=== PATIENT | male | born 1955 | race Caucasian/White ===

== ENCOUNTER 2017-03-06 22:00 | Observation (INO) | payer OTHER ==
--- NOTE | 2017-03-06 22:06 | EDPHY ---
H & P HPI/ROS: HPI CHIEF COMPLAINT: Chest pain HISTORY OF PRESENT ILLNESS: Patient is 61-year-old male, history of coronary artery disease, diabetes, hypertension, hyperlipidemia he presents emergency room after he rode his bicycle here with chest pain. Patient reports that over the last 48 hr he has noticed exertional chest discomfort he describes a dull ache left side of his chest goes down his left arm and up his left neck. He reports worse with exertion. Specifically it is worse when he rides his bicycle. He states when he stops riding his bicycle chest discomfort goes away. Currently has 4/10 left-sided chest discomfort. Denies nausea vomiting or diaphoresis. Past Medical History: Coronary artery disease with stents, diabetes, hypertension, hyperlipidemia, GERD, osteoarthritis, chronic pain, alcohol use Past Surgical History: Coronary disease with stents Social History: Retired [employer]. Family History: Noncontributory ROS REVIEW OF SYSTEMS: A comprehensive 10 point review of systems is otherwise negative aside from elements mentioned in the history of present illness. Exam Constitutional triage nursing summary reviewed, vital signs reviewed, awake/ alert. Eyes normal conjunctivae and sclera, EOMI, PERRLA. HENT normal inspection, atraumatic, moist mucus membranes, no epistaxis, neck supple/ no meningismus, no raccoon eyes. Respiratory clear to auscultation bilaterally, normal breath sounds, no respiratory distress, no wheezing. Cardiovascular rate normal, regular rhythm, no murmur, no edema, distal pulses normal. Gastrointestinal soft, non-tender, no rebound, no guarding, normal bowel sounds, no distension, no pulsatile mass. Genitourinary no CVA tenderness. Musculoskeletal no midline vertebral tenderness, full range of motion, no calf swelling, no tenderness of extremities, no meningismus, good pulses, neurovascularly intact. Skin pink, warm, & dry, no rash, skin atraumatic. Neurologic awake, alert and oriented x 3, AAOx3, moves all 4 extremities equally, motor intact, sensory intact, CN II-XII intact, normal cerebellar, normal vision, normal speech. Psychiatric normal mood/affect. Heme/Lymph/Immune no lymphadenopathy. 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 See if we can improve his chest discomfort. Re-evaluation: 2219: Patient is having typical chest discomfort exertional. Very concerning. With significant past cardiac history. EKG interpretation by me on record in [employer] system. Impression time of EKG 2215, sinus rhythm rate of 83 T-wave abnormality seen in lead [address] elevation. Otherwise unremarkable nonischemic EKG. And I compare this to his old EKG 03/01/2015 is very similar morphology. ED x-ray chest one view: Negative for acute cardiopulmonary disease. Interpreted by myself. 1202: Patient is chest pain-free. Resting comfortably no acute distress. He understands he needs admission for chest pain further evaluation. There is no evidence of acute coronary syndrome at this time. No ST elevation on his EKG. His troponin is negative. His story is concerning for typical chest pain. And has multitude risk factors. I spoke with Dr. Rangel agrees to admit this patient. Source: Patient - Personal History Tetanus Vaccine Date: 2012 - Medical/Surgical History Hx Asthma: No Hx Chronic Respiratory Disease: No Hx Diabetes: Yes Hx Cardiac Disease: Yes Hx Renal Disease: No Hx Cirrhosis: No Hx Alcoholism: No Hx HIV/AIDS: No Hx Splenectomy or Spleen Trauma: No Other PMH: HTN,STENTS IN ,1999 and 2014 , BACK INJIURY 1975,. KNEE SURGERY 1994, IDDM, SHOULER INJURY, ARTHRITIS - Social History Smoking Status: Never smoked Constitutional: Initial Vital Signs Temperature (C) 36.5 C 03/06/17 22:03 Heart Rate 91 03/06/17 22:03 Respiratory Rate 18 03/06/17 22:03 Blood Pressure 157/90 H 03/06/17 22:03 O2 Sat (%) 93 03/06/17 22:03 O2 Delivery Mode Room Air O2 (L/minute) 2 Allergies/Adverse Reactions: coffee (Coffea arabica) Allergy (Verified 03/06/17 22:07) onion Allergy (Verified 03/06/17 22:07) Home Medications: Medication Instructions Recorded Aspirin EC [Aspirin EC 325 mg (*)] 325 mg PO DAILY 03/22/14 Herbals/Supplements -Info Only 1 ea PO DAILY 03/22/14 Insulin Glargine,Hum.rec.anlog 45 unit SQ DAILY 03/22/14 [Lantus Solostar] Pantoprazole Sodium [Protonix 40mg 40 mg PO DAILY 03/22/14 (*)] Prasugrel HCl [Effient 10mg (*)] 10 mg PO DAILY #0 tab 03/24/14 Lisinopril [Zestril 2.5 mg (*)] 2.5 mg PO DAILY 04/01/14 Atorvastatin Calcium [Lipitor 40 40 mg PO HS 11/20/14 mg (*)] Nitroglycerin [Nitrostat 0.4 mg 0.4 mg SL PRN PRN #1 bottle 03/02/15 (*)] Benzonatate [Tessalon Pearles] 200 mg PO TID PRN 03/07/17 Diazepam [Valium 10 MG (*)] 10 mg PO BID PRN 03/07/17 Empagliflozin [Jardiance] 25 mg PO DAILY 03/07/17 Exenatide Microspheres [Bydureon] 2 mg SQ DOWNEY 03/07/17 metFORMIN HCL [Glucophage 1000 mg] 1,000 mg PO BIDMEAL 03/07/17 oxyCODONE/APAP 5/325 [Percocet 1 tab PO DAILY PRN 03/07/17 5/325 (*)] Isosorbide Mononitrate [Imdur 30 30 mg PO DAILY #30 tab.sr 03/08/17 mg (*)] Metoprolol Tartrate [Lopressor 50 50 mg PO BID #60 tab 03/08/17 mg (*)] Medical Decision Making - Data Points Laboratory Results: Laboratory Results 03/06/17 22:20 03/06/17 22:20 Medications Given: Discontinued Medications Aspirin (Aspirin) 324 mg PO EDNOW ONE Stop: 03/06/17 22:09 Last Admin: 03/07/17 00:24 Dose: Not Given Aspirin Buffered (Aspirin Ec) 325 mg PO ONCALL ONE Stop: 03/07/17 14:46 Last Admin: 03/07/17 15:28 Dose: 325 mg Atorvastatin Calcium (Lipitor) 40 mg PO HS YARA Stop: 09/03/17 20:59 Last Admin: 03/07/17 21:30 Dose: 40 mg Diazepam (Valium) 5 mg PO ONCALL ONE Stop: 03/07/17 14:46 Last Admin: 03/07/17 15:28 Dose: 5 mg Diphenhydramine HCl (Benadryl) 25 mg PO ONCALL ONE Stop: 03/07/17 14:46 Last Admin: 03/07/17 15:27 Dose: 25 mg Enoxaparin Sodium (Lovenox) 40 mg SC DAILY YARA Stop: 09/03/17 08:59 Last Admin: 03/08/17 08:27 Dose: 40 mg Famotidine (Pepcid) 20 mg PO ONCALL ONE Stop: 03/07/17 14:46 Last Admin: 03/07/17 15:27 Dose: 20 mg Sodium Chloride (Ns) 1,000 mls @ 0 mls/hr IV EDNOW ONE; Wide Open PRN Reason: Protocol Stop: 03/06/17 22:09 Last Admin: 03/06/17 22:55 Dose: 1,000 mls Sodium Chloride (1/2 Ns) 1,000 mls @ 75 mls/hr IV CONT YARA Stop: 09/03/17 10:14 Last Admin: 03/07/17 10:24 Dose: 1,000 mls Insulin Glargine (Lantus Syringe) 30 units SC DAILY YARA Stop: 09/03/17 08:59 Last Admin: 03/07/17 11:23 Dose: Not Given Insulin Human Lispro (Humalog Lispro) 0 unit SC TIDMEAL YARA PRN Reason: Protocol Stop: 09/03/17 07:59 Last Admin: 03/08/17 11:44 Dose: Not Given Isosorbide Mononitrate (Imdur) 30 mg PO DAILY [facility] Stop: 09/04/17 08:59 Last Admin: 03/08/17 08:27 Dose: 30 mg Lisinopril (Zestril) 2.5 mg PO DAILY YARA Stop: 09/04/17 08:59 Last Admin: 03/08/17 08:26 Dose: 2.5 mg Metoprolol Tartrate (Lopressor) 50 mg PO BID YARA Stop: 09/03/17 20:59 Last Admin: 03/08/17 08:26 Dose: 50 mg Nitroglycerin (Nitrostat) 0.4 mg SL EDNOW ONE Stop: 03/06/17 22:19 Last Admin: 03/07/17 00:24 Dose: Not Given Nitroglycerin (Nitrostat) 0.4 mg SL PRN PRN PRN Reason: Chest Pain Stop: 09/03/17 09:06 Last Admin: 03/07/17 10:46 Dose: 0.4 mg Oxycodone/Acetaminophen (Percocet 5/325) 1 tab PO DAILY PRN PRN Reason: Pain, Severe Stop: 03/17/17 09:06 Last Admin: 03/08/17 03:40 Dose: 1 tab Pantoprazole Sodium (Protonix) 40 mg PO DAILY YARA Stop: 09/04/17 08:59 Last Admin: 03/08/17 08:25 Dose: 40 mg Departure - Departure Disposition: [facility] Inpatient Acute Clinical Impression: Chest pain Qualifiers: Chest pain type: unspecified Qualified Code(s): R07.9 - Chest pain, unspecified Condition: Fair
[2017-03-06] MEDS ORDERED: ASPIRIN 81 MG CHEWABLE TAB PO ONE (22:08)
[2017-03-06] MEDS ORDERED: NS 1,000 ML IV ONE (22:08)
[2017-03-06] MEDS ORDERED: NITROGLYCERIN 0.4 MG BTL SL ONE (22:18)
--- NOTE | 2017-03-06 22:18 | CPEKG ---
Heart Rate: 83 RR Interval: 723 P-R Interval: 168 QRSD Interval: 98 QT Interval: 376 QTC Interval: 442 P [place]: 24 QRS [place]: 28 T Wave [place]: -5 EKG Severity - BORDERLINE ECG - EKG Impression: SINUS RHYTHM EKG Impression: BORDERLINE T ABNORMALITIES, INFERIOR LEADS Electronically Signed By: Bill Goldstein 07-Mar-2017 06:54:49
[2017-03-06 22:40] LABS: % IMMATURE GRANULYOCYTES 0.5 % (0.0-1.1); ABSOLUTE IMMATURE GRANULOCYTES 0.03 10^3/uL (0.00-0.10); ADD DIFF? NO; ADD MORPH? NO; ADD SCAN? NO; ATYPICAL LYMPHOCYTE FLAG 10 (0-99); FRAGMENT RBC FLAG 0 (0-99); HEMATOCRIT 49.5 % (40.0-51.0); HEMOGLOBIN 16.8 g/dL (13.7-17.5); LEFT SHIFT FLG 0 (0-99); LIPEMIA HEMOLYSIS FLAG 90 (0-99); MEAN CELL HEMOGLOBIN 29.7 pg (27.9-34.1); MEAN CELL HEMOGLOBIN CONCENTR. 33.9 g/dL (32.4-36.7); MEAN CELL VOLUME 87.5 fL (81.5-99.8); MEAN PLATELET VOLUME 10.4 fL (8.7-11.7); PLATELET CLUMPS FLAG 0 (0-99); PLATELET COUNT 190 10^3/uL (150-400); RED BLOOD CELL COUNT 5.66 10^6/uL (4.40-6.38); RED CELL DISTRIBUTION WIDTH 13.7 % (11.5-15.2)
[2017-03-06 23:01] LABS: ALANINE AMINOTRANSFERASE 30 IU/L (21-72); ALBUMIN 4.6 g/dL (3.5-5.0); ALKALINE PHOSPHATASE 71 IU/L (38-126); ANION GAP 19 mEq/L (8-16); ASPARTATE AMINOTRANSFERASE 22 IU/L (17-59); BILIRUBIN,TOTAL 0.5 mg/dL (0.1-1.4); BILIRUBIN-CONJUGATED 0.3 mg/dL (0.0-0.5); BILIRUBIN-UNCONJUGATED 0.2 mg/dL (0.0-1.1); CALCIUM 9.3 mg/dL (8.5-10.4); CARBON DIOXIDE 14 mEq/l (22-31); CHLORIDE 109 mEq/L (97-110); CREATININE 0.8 mg/dL (0.7-1.3); GLOMERULAR FILTRATION RATE > 60; GLUCOSE 260 mg/dL (70-100); MAGNESIUM 1.5 mg/dL (1.6-2.3); POTASSIUM 4.3 mEq/L (3.5-5.2); SODIUM 142 mEq/L (134-144); TOTAL PROTEIN 7.4 g/dL (6.3-8.2)
[2017-03-06 23:12] LABS: TROPONIN I < 0.012 ng/mL (0.000-0.034)
[2017-03-06 23:16] LABS: CK-MB INTERPRETATION POSITIVE (NEGATIVE); CREATINE KINASE-MB FRACTION 3.71 ng/mL (0.00-3.19)
[2017-03-06 23:39] LABS: INR 1.01 (0.83-1.16); PROTIME(PATIENT) 13.5 SEC (12.0-15.0)
[2017-03-06 23:40] LABS: APTT 30.8 SEC (23.0-38.0)
[2017-03-06] MEDS ORDERED: ONDANSETRON 4 MG/2 ML VIAL IVP PRN (23:52)
[2017-03-06] MEDS ORDERED: ONDANSETRON DISINTEGRATING 4 MG TAB PO PRN (23:52)
[2017-03-06] MEDS ORDERED: ACETAMINOPHEN 325 MG TAB PO PRN (23:52)
--- NOTE | 2017-03-07 02:09 | PDGENHP ---
History and Physical - Chief Complaint Chest pain - History of Present Illness 61 yo M w/ hx of CAD s/p ATA to LAD and RCA presents with chest pain. Patient describes L sided chest pain with radiation to L arm and L neck while riding his bike yesterday. The pain resolved by resting but returned once he got back on his bike. He noted the pain at rest again today so decided to come to the ED. In the ED troponin was negative and ECG showed no signs of acute ischemia. He is currently chest pain free. Of note, he was admitted here in February of 2015 and underwent cardiac catheterization that revealed widely patent stents after indeterminate stress test. History Information - Allergies/Home Medication List Allergies/Adverse Reactions: coffee (Coffea arabica) Allergy (Verified 03/06/17 22:07) onion Allergy (Verified 03/06/17 22:07) Home Medications: Aspirin EC [Aspirin EC 325 mg (*)] 325 mg PO DAILY 03/22/14 [Last Taken 03/01/15 ] Atenolol [Tenormin 25 mg (*)] 25 mg PO DAILY 03/22/14 [Last Taken 03/01/15] Exenatide [Byetta] 10 mcg SQ BID 03/22/14 [Last Taken 03/01/15 21:00] Herbals/Supplements -Info Only 1 ea PO DAILY 03/22/14 [Last Taken 03/01/15] Insulin Glargine,Hum.rec.anlog [Lantus Solostar] 35 unit SQ DAILY 03/22/14 [ Last Taken 03/01/15] Oxycodone HCl/Acetaminophen [Oxycodone-Acetaminophen 5-325] 1 each PO Q4 PRN 07/01 [Last Taken 02/16/15] Pantoprazole Sodium [Protonix 40mg (*)] 40 mg PO DAILY 03/22/14 [Last Taken ] Lisinopril [Zestril 2.5 mg (*)] 2.5 mg PO DAILY 04/01/14 [Last Taken 03/01/15] Diazepam [Valium 5 MG (*)] 5 mg PO BID PRN 04/19/14 [Last Taken 01/31/15] Hydrocodone/Acetaminophen [Hydrocodon-Acetaminophen 5-500] 1 - 2 tab PO Q4 PRN 04/19/14 [Last Taken 02/23/15] Atorvastatin Calcium [Lipitor 40 mg (*)] 40 mg PO HS 11/20/14 [Last Taken ] I have personally reviewed and updated: family history, medical history - Past Medical History coronary artery disease - Surgical History Reports: coronary stent (ATA to LAD and RCA) - Family History Positive for: CAD - Social History Smoking Status: Never smoked Review of Systems Review of Systems: ROS: 10pt was reviewed & negative except for what was stated in HPI & below Physical Exam Physical Exam: Temp Pulse Resp BP Pulse Ox 36.5 C 70 15 122/82 H 96 03/06/17 22:03 03/07/17 00:47 03/07/17 00:47 03/07/17 00:47 03/07/17 00:47 O2 (L/minute) 2 Constitutional: no apparent distress, not in pain Eyes: PERRL, EOMI Ears, Nose, Mouth, Throat: moist mucous membranes, no oral mucosal ulcers Cardiovascular: regular rate and rhythym, no murmur, rub, or gallop Respiratory: no respiratory distress, no rales or rhonchi Gastrointestinal: normoactive bowel sounds, soft, non-tender abdomen Skin: warm, normal color Musculoskeletal: full muscle strength, no muscle tenderness Neurologic: AAOx3, CN II-XII Intact Psychiatric: interacting appropriately, not anxious Lab Data & Imaging Review 03/06/17 22:20 03/06/17 22:20 WBC 6.28 10^3/uL (3.80-9.50) 03/06/17 22:20 RBC 5.66 10^6/uL (4.40-6.38) 03/06/17 22:20 Hgb 16.8 g/dL (13.7-17.5) 03/06/17 22:20 Hct 49.5 % (40.0-51.0) 03/06/17 22:20 MCV 87.5 fL (81.5-99.8) 03/06/17 22:20 MCH 29.7 pg (27.9-34.1) 03/06/17 22:20 MCHC 33.9 g/dL (32.4-36.7) 03/06/17 22:20 RDW 13.7 % (11.5-15.2) 03/06/17 22:20 Plt Count 190 10^3/uL (150-400) 03/06/17 22:20 MPV 10.4 fL (8.7-11.7) 03/06/17 22:20 Neut % (Auto) 51.0 % (39.3-74.2) 03/06/17 22:20 Lymph % (Auto) 34.9 % (15.0-45.0) 03/06/17 22:20 [place] % (Auto) 10.4 % (4.5-13.0) 03/06/17 22:20 Eos % (Auto) 2.4 % (0.6-7.6) 03/06/17 22:20 Baso % (Auto) 0.8 % (0.3-1.7) 03/06/17 22:20 Nucleat RBC Rel Count 0.0 % (0.0-0.2) 03/06/17 22:20 Absolute Neuts (auto) 3.21 10^3/uL (1.70-6.50) 03/06/17 22:20 Absolute Lymphs (auto) 2.19 10^3/uL (1.00-3.00) 03/06/17 22:20 Absolute Monos (auto) 0.65 10^3/uL (0.30-0.80) 03/06/17 22:20 Absolute Eos (auto) 0.15 10^3/uL (0.03-0.40) 03/06/17 22:20 Absolute Basos (auto) 0.05 10^3/uL (0.02-0.10) 03/06/17 22:20 Absolute Nucleated RBC 0.00 10^3/uL (0-0.01) 03/06/17 22:20 Immature Gran % 0.5 % (0.0-1.1) 03/06/17 22:20 Immature Gran # 0.03 10^3/uL (0.00-0.10) 03/06/17 22:20 PT 13.5 SEC (12.0-15.0) 03/06/17 22:20 INR 1.01 (0.83-1.16) 03/06/17 22:20 APTT 30.8 SEC (23.0-38.0) 03/06/17 22:20 Sodium 142 mEq/L (134-144) 03/06/17 22:20 Potassium 4.3 mEq/L (3.5-5.2) 03/06/17 22:20 Chloride 109 mEq/L (97-110) 03/06/17 22:20 Carbon Dioxide 14 mEq/l (22-31) L 03/06/17 22:20 Anion Gap 19 mEq/L (8-16) H 03/06/17 22:20 BUN 14 mg/dL (7-23) 03/06/17 22:20 Creatinine 0.8 mg/dL (0.7-1.3) 03/06/17 22:20 Estimated GFR > 60 03/06/17 22:20 Glucose 260 mg/dL (70-100) H 03/06/17 22:20 Calcium 9.3 mg/dL (8.5-10.4) 03/06/17 22:20 Magnesium 1.5 mg/dL (1.6-2.3) L 03/06/17 22:20 Total Bilirubin 0.5 mg/dL (0.1-1.4) 03/06/17 22:20 Conjugated Bilirubin 0.3 mg/dL (0.0-0.5) 03/06/17 22:20 Unconjugated Bilirubin 0.2 mg/dL (0.0-1.1) 03/06/17 22:20 AST 22 IU/L (17-59) 03/06/17 22:20 ALT 30 IU/L (21-72) 03/06/17 22:20 Alkaline Phosphatase 71 IU/L (38-126) 03/06/17 22:20 Creatine Kinase 85 IU/L (0-224) 03/06/17 22:20 CK-MB (CK-2) Fraction 3.71 ng/mL (0.00-3.19) H 03/06/17 22:20 CK-MB (CK-2) % 4.4 % (0.0-4.0) H 03/06/17 22:20 Creatine Kinase Interp POSITIVE (NEGATIVE) H 03/06/17 22:20 Troponin I < 0.012 ng/mL (0.000-0.034) 03/06/17 22:20 NT-Pro-B Natriuret Pep 50 pg/mL (0-125) 03/06/17 22:20 Total Protein 7.4 g/dL (6.3-8.2) 03/06/17 22:20 Albumin 4.6 g/dL (3.5-5.0) 03/06/17 22:20 Lipase 190 IU/L (23-300) 03/06/17 22:20 Visualized and Interpreted EKG results: Yes EKG Interpretation: Positive for: normal sinsus rhythm, NS ST wave abnormalities Assessment & Plan Assessment: 61 yo M w/ hx of CAD presents with chest pain. Plan: 1. Chest pain - Typical chest pain in that symptoms were worsened by exertion and relieved by rest; radiation to left arm and left neck also concerning. Additionally, chest pain at rest on day of admission could be consistent with unstable angina. However, despite intermittent pain for >24 hours, troponin remains negative. ECG without signs of acute ischemia and currently chest pain free. Of note, he was admitted here in February of 2015 and underwent cardiac catheterization that revealed widely patent stents after indeterminate stress test. - Will consult cardiology to help consider next step; noting history and that last stress test was indeterminate, he may need to proceed directly to catheterization - Maintain NPO, monitor on telemetry, trend cardiac enzymes 2. Hx CAD - s/p ATA to LAD and RCA in early 2014. Acute management as above 3. IDDM - Takes metformin, insulin glargine 45 u qHS, and dulaglutide weekly as outpatient. - Will lower glargine to 30 u noting NPO - SSI standard dose 4. GERD - Takes PPI as outpatient, unclear if this is contributing to presentation. Diet - NPO Code - Full Ppx - LMWH Dispo - Admit to observation status, PCU
[2017-03-07 05:54] LABS: % IMMATURE GRANULYOCYTES 0.5 % (0.0-1.1); ABSOLUTE IMMATURE GRANULOCYTES 0.03 10^3/uL (0.00-0.10); ADD DIFF? NO; ADD MORPH? NO; ADD SCAN? NO; ATYPICAL LYMPHOCYTE FLAG 0 (0-99); FRAGMENT RBC FLAG 0 (0-99); HEMATOCRIT 46.7 % (40.0-51.0); HEMOGLOBIN 15.4 g/dL (13.7-17.5); LEFT SHIFT FLG 0 (0-99); LIPEMIA HEMOLYSIS FLAG 80 (0-99); MEAN CELL HEMOGLOBIN 28.8 pg (27.9-34.1); MEAN CELL VOLUME 87.3 fL (81.5-99.8); MEAN PLATELET VOLUME 10.5 fL (8.7-11.7); PLATELET CLUMPS FLAG 0 (0-99); PLATELET COUNT 166 10^3/uL (150-400); RED BLOOD CELL COUNT 5.35 10^6/uL (4.40-6.38); RED CELL DISTRIBUTION WIDTH 13.8 % (11.5-15.2)
[2017-03-07 06:07] LABS: ANION GAP 15 mEq/L (8-16); CALCIUM 9.1 mg/dL (8.5-10.4); CARBON DIOXIDE 23 mEq/l (22-31); CHLORIDE 109 mEq/L (97-110); CREATININE 0.7 mg/dL (0.7-1.3); GLOMERULAR FILTRATION RATE > 60; GLUCOSE 57 mg/dL (70-100); MAGNESIUM 1.6 mg/dL (1.6-2.3); POTASSIUM 4.4 mEq/L (3.5-5.2); SODIUM 147 mEq/L (134-144)
[2017-03-07 06:16] LABS: TROPONIN I < 0.012 ng/mL (0.000-0.034)
[2017-03-07] MEDS ORDERED: INSULIN GLARGINE 100 UNITS/ML SYRINGE SC SCH (09:00)
[2017-03-07] MEDS: INSULIN LISPRO 100 UNIT/ML SC SCH ×3 (09:02→18:41)
[2017-03-07] MEDS: ENOXAPARIN 40 MG/0.4 ML SYR SC SCH (09:02)
[2017-03-07] MEDS ORDERED: NITROGLYCERIN 0.4 MG BTL SL PRN (09:07)
[2017-03-07] MEDS ORDERED: DIAZEPAM 10 MG TAB PO PRN (09:07)
[2017-03-07] MEDS ORDERED: DIAZEPAM 5 MG TAB PO PRN (09:13)
--- NOTE | 2017-03-07 09:40 | ASMTCMCOM ---
CM Note CM Note Notes: 03/07/2017 Case Management Note Reviewed chart. There are no case management d/c needs identified d/t pt age, family support and activity levels prior to admission. There are no PT or OT evals ordered at this time. Case Management d/c poc: Home independent with follow up as directed. Case Management available if needs change. Date Signed: 03/07/2017 09:40 AM Electronically Signed By:Katelynn Sheldon RN
[2017-03-07] MEDS ORDERED: 1/2 NS 1,000 ML IV SCH (10:15)
--- NOTE | 2017-03-07 10:16 | HOSPPROG ---
Hospitalist Progress Note Assessment/Plan: New patient encounter 61 yo M w/ hx of CAD presents with chest pain. 1. Chest pain - Typical chest pain in that symptoms were worsened by exertion and relieved by rest; radiation to left arm and left neck also concerning. Additionally, chest pain at rest on day of admission could be consistent with unstable angina. However, despite intermittent pain for >24 hours, troponin remains negative. ECG without signs of acute ischemia and currently chest pain free. Of note, he was admitted here in February of 2015 and underwent cardiac catheterization that revealed widely patent stents after indeterminate stress test. - Awaiting consult cardiology to help consider next step; noting history and that last stress test was indeterminate, he may need to proceed directly to catheterization - Maintain NPO, monitor on telemetry. Cardiac enzymes cont to be unremarkable. EKG negative 2. Hx CAD - s/p ATA to LAD and RCA in early 2014. Acute management as above 3. IDDM - Takes metformin, insulin glargine 45 u qHS, and dulaglutide weekly as outpatient. - Will lower glargine to 30 u noting NPO - SSI standard dose -Hold Metformin 4. GERD - Restart PPI, unclear if this is contributing to presentation. Diet - NPO Code - Full Ppx - LMWH Dispo - Admit to observation status, PCU. Plan: Per above Cards Consult waiting slight hypernatremia noted, will provide 1/2NS IVF while NPO Complete Med Rec Subjective: Not symptomatic. No CP or SOB. NO N/V. NPO, awaiting Cards consult Objective: Vital Signs Temp Pulse Resp BP Pulse Ox 35.5 C L 61 12 142/71 H 95 03/07/17 08:49 03/07/17 08:49 03/07/17 08:49 03/07/17 08:49 03/07/17 08:49 Laboratory Results 03/07/17 04:28 03/07/17 04:28 PT 13.5 SEC (12.0-15.0) 03/06/17 22:20 INR 1.01 (0.83-1.16) 03/06/17 22:20 - Physical Exam Constitutional: no apparent distress Eyes: PERRL, EOMI Ears, Nose, Mouth, Throat: moist mucous membranes, hearing normal, ears appear normal Cardiovascular: regular rate and rhythym, No JVD, No edema Respiratory: no respiratory distress, no rales or rhonchi, clear to auscultation Gastrointestinal: normoactive bowel sounds, soft, non-tender abdomen, no palpable masses Skin: warm Neurologic: AAOx3 Psychiatric: interacting appropriately, not anxious, not encephalopathic Lymph, Heme, Immunologic: No petechiae ICD10 Worksheet Patient Problems: Problems Problem Status Onset Chest pain Acute Alcohol intoxication Acute Chest pain in adult Acute Coronary artery disease Acute History of placement of stent in LAD coronary artery Acute History of right coronary artery stent placement Acute
[2017-03-07] MEDS ORDERED: DIAZEPAM 5 MG TAB PO ONE (14:45)
[2017-03-07] MEDS ORDERED: TEMAZEPAM 15 MG CAP PO PRN (14:45)
[2017-03-07] MEDS ORDERED: ASPIRIN EC 325 MG TAB PO ONE ×2 (14:45→15:26)
[2017-03-07] MEDS ORDERED: diphenhydrAMINE 25 MG CAP PO ONE ×2 (14:45→15:26)
[2017-03-07] MEDS ORDERED: FAMOTIDINE 20 MG TAB PO ONE (14:45)
[2017-03-07] MEDS ORDERED: MIDAZOLAM 2 MG/2 ML VIAL ONE ×2 (15:21→15:22)
[2017-03-07] MEDS ORDERED: LIDOCAINE 1% 300 MG/30 ML SDV ONE (15:21)
[2017-03-07] MEDS ORDERED: fentaNYL 100 MCG/2 ML INJ ONE (15:21)
[2017-03-07] MEDS ORDERED: IOPAMIDOL (ISOVUE-370) 150 ML BTL IV ONE (15:22)
[2017-03-07] MEDS ORDERED: FAMOTIDINE 20 MG TAB ONE (15:26)
[2017-03-07] MEDS ORDERED: DIAZEPAM 5 MG TAB ONE (15:26)
--- NOTE | 2017-03-07 16:01 | PDPROPOC ---
Sedation Plan of Care Sedation Plan of Care: vital signs stable, mental status noted, patient educated of risks, benefits, alternatives, patient can tolerate sedation ASA Classification: ASA 2 Planned drugs: fentanyl, midazolam Mallampati Score: Class 2 Mallampati Reference Image: Patient passed 3-3-2 rule?: Yes
--- NOTE | 2017-03-07 16:03 | PDGENHP ---
History & Physical Chief Complaint: Chest pain History of Present Illness: 61 year male with known hx of CAD with DM, HTN and hyperlipidemia with new onset of 5/10 exertional chest pain with radiation to jaw and down left arm on Sunday with progression of symptoms at rest. Relevant Physical Exam: Awake, Alert Appropriate.
[2017-03-07] MEDS ORDERED: ATROPINE SULFATE 1 MG/10 ML SYR IVP PRN (16:44)
[2017-03-07] MEDS ORDERED: ATROPINE SULFATE 1 MG/10 ML SYR ONE (16:46)
[2017-03-07] MEDS: OXYCODONE/APAP 5/325 TAB PO PRN (17:19)
[2017-03-07 19:50] LABS: INR 1.09 (0.83-1.16); PROTIME(PATIENT) 14.3 SEC (12.0-15.0)
[2017-03-07 19:51] LABS: APTT 34.4 SEC (23.0-38.0)
--- NOTE | 2017-03-07 20:11 | GCON ---
[f rep st] CONSULTATION DATE OF CONSULTATION: 03/07/2017 CHIEF COMPLAINT: Chest pain. HISTORY OF PRESENT ILLNESS: The patient is a 61-year-old male with history of diabetes, hyperlipidem ia, and coronary artery disease, status post stenting to his right coronary artery and left anterior descending artery on March 23, 2014. He presented back to the hospital on April 02, 2014 with rec urrent chest pain and had a repeat angiogram showing patent stents. He had similar discomfort in Nov and again in February of 2015. In February, he had another angiogram which showed patent stents with mild coronary disease. Juliano has done well until recently. Over the last few weeks, he has just felt off. On Sunday, he was riding his bike when he developed chest tightness which radiate d into his neck and left arm. He got off his bike and rested on a bench, and the discomfort went crow y. He then began riding again, and the discomfort returned. He has had some chest discomfort at res t where nitroglycerin relieved his pain. His first 2 troponins have been negative. His EKG shows in ferior T-waves in the inferior leads, which is old. PAST MEDICAL HISTORY: Diabetes, reflux, hyperlipidemia, arthritis, and CAD as stated above. FAMILY HISTORY: Negative for coronary artery disease. SOCIAL HISTORY: He denies any tobacco, caffeine, or drug use. He walks and cycles for his mode of t ransportation. He is currently accompanied by his son. MEDICATIONS: Home medications: Insulin Lantus 45 units subcu daily, atenolol 25 mg daily, herbal [place] pplement daily, Protonix 40 mg daily, aspirin 325 mg daily, Effient 10 mg daily, lisinopril 2.5 mg da , Imdur 30 mg daily, Lipitor 40 mg at bedtime, nitroglycerin 0.4 mg sublingual p.r.n. for chest pa in, metformin 1000 mg b.i.d., Jardiance 25 mg daily, Tessalon Perles 200 mg t.i.d. p.r.n., Valium 10 mg b.i.d. p.r.n., oxycodone 5/325 mg p.r.n., Bydureon 2 mg subcu on Sundays. ALLERGIES: No known drug allergies. PHYSICAL EXAMINATION: GENERAL: Patient appears in no acute distress. VITALS: Blood pressure 140/8 5, heart rate 58, oxygen saturation 99% on 2 L, afebrile. NECK: No carotid bruits or JVD present. LUNGS: Clear to auscultation. No wheezes, rhonchi, or crackles auscultated. CARDIAC: Regular rate and rhythm without any significant murmurs, rubs, or gallops appreciated. ABDOMEN: Soft, nontender , nondistended. Bowel sounds present. EXTREMITIES: Palpable pulses bilaterally without any evidenc e of edema. NEUROLOGIC: Nonfocal. PSYCHIATRIC: Mood and affect appropriate. SKIN: No obvious ra shes or ecchymosis identified. LABORATORY: Troponin negative x2. BNP 50. Sodium 147, potassium 4.4, chloride 109, bicarb 15, BUN 12, creatinine 0.7. CBC within normal limits. REPORTS: EKG reveals normal sinus rhythm with inferior Q-waves and T-wave inversion in the inferior leads. Chest x-ray negative for acute cardiopulmonary disease. ASSESSMENT: The patient is a 61-year-old male with history of coronary artery disease and type 1 yanick betes, who presents with angina. PLAN: The patient has a history of coronary disease with prior stenting to his left anterior descend ing artery and right coronary artery in March 2014. He presents today with similar symptoms to wha t he experienced prior to his stents in 2014. He has had 2 angiograms since his stents, which showed patent stents with his last one occurring in February of 2015. Given his escalation of symptoms as well as some of his discomfort occurring at rest, I do think it is reasonable to proceed with an christofer ogram. Medical therapy and nuclear stress test were also discussed with the patient. He prefers to proceed with an angiogram. The risks, benefits, and alternatives have been discussed with him, and caterina head would like to proceed. /[id number]/MODL
[2017-03-07 20:25] LABS: CHOLESTEROL 145 mg/dL (140-220); CHOLESTEROL/HDL RATIO 2.46 RATIO (1.00-4.97); HIGH DENSITY LIPOPROTEIN 59 mg/dL (40-65); LDL/HDL RATIO 1.08 RATIO (1.00-3.64); LOW DENSITY LIPOPROTEIN 64 mg/dL (80-100); NON-HIGH DENSITY LIPOPROTEIN 86 mg/dL (90-129); TRIGLYCERIDE 112 mg/dL (40-150); VERY LOW DENSITY LIPOPROTEINS 22 mg/dL (8-25)
[2017-03-07] MEDS ORDERED: ATORVASTATIN CALCIUM 40 MG TAB PO SCH (21:00)
[2017-03-07] MEDS: METOPROLOL TARTRATE 50 MG TAB PO SCH (21:31)
[2017-03-08] MEDS: OXYCODONE/APAP 5/325 TAB PO PRN (03:40)
[2017-03-08 06:34] LABS: ANION GAP 15 mEq/L (8-16); CALCIUM 9.5 mg/dL (8.5-10.4); CARBON DIOXIDE 22 mEq/l (22-31); CHLORIDE 102 mEq/L (97-110); CREATININE 0.8 mg/dL (0.7-1.3); GLOMERULAR FILTRATION RATE > 60; GLUCOSE 104 mg/dL (70-100); POTASSIUM 5.1 mEq/L (3.5-5.2); SODIUM 139 mEq/L (134-144)
[2017-03-08 07:24] VITALS: BP 146/80; RESP 20; TEMP 98; O2SAT 96
[2017-03-08] MEDS: METOPROLOL TARTRATE 50 MG TAB PO SCH (08:26)
[2017-03-08] MEDS: INSULIN LISPRO 100 UNIT/ML SC SCH ×2 (08:26→11:44)
[2017-03-08] MEDS: ENOXAPARIN 40 MG/0.4 ML SYR SC SCH (08:27)
[2017-03-08 08:32] VITALS: PULSE 66
[2017-03-08] MEDS ORDERED: LISINOPRIL 2.5 MG TAB PO SCH (09:00)
[2017-03-08] MEDS ORDERED: ATENOLOL 25 MG TAB PO SCH (09:00)
[2017-03-08] MEDS ORDERED: ISOSORBIDE MONONITRATE 30 MG TAB.SR PO SCH (09:00)
[2017-03-08] MEDS ORDERED: PANTOPRAZOLE SODIUM 40 MG TAB PO SCH (09:00)
--- NOTE | 2017-03-08 11:12 | PDCARPN ---
Cardiology Progress Note Chief Complaint: CP Assessment/Plan: Assessment/Plan: Juliano is a 61 y/o M with a history of CAD s/p stenting to the LAD and RCA in 2014. His most recent angiogram was in 02/2015 which showed patent coronaries. He presented to the hospital complaining of exertional chest tightness which radiated into this neck and arm and relieved with rest and Nitro. A angiogram yesterday showed CAD without obstruction. He will be treated medically. Atenolol was d/c and he was started on Metoprolol 50mg BID. He will continue Imdur and get a new prescription for SL Nitro PRN prior to d/c. If he continues to have angina consider adding Ranexa. He will hold Metformin for 48 hour post cath. His hypertension is borderline but better with increased dose of BB. Follow up on 03/23 at 10:[address] Parr. 03/08/17 11:12 Subjective: Pt denies any further chest discomfort. Reviewed/Discussed With: hospitalist Objective: Vital Signs (8 Hrs) Temp Pulse Resp BP Pulse Ox 03/08/17 08:26 66 03/08/17 07:23 36.7 C 57 L 20 146/80 H 96 03/08/17 03:33 134/75 H 03/08/17 03:22 36.8 C 59 L 12 156/81 H 98 Intake/Output (24 Hrs) 03/07/17 03/08/17 03/09/17 05:59 05:59 05:59 Intake Total 1960 Output Total 2410 700 Balance -450 -700 Intake: Oral (ml) 720 IV Infused (ml) 1240 1/2 Ns 1,000 ml @ 75 mls/ 1240 hr IV CONT YARA Rx#: [id number] Output: Urine (ml) 2410 700 Toilet 1200 Urinal 1210 700 Other: Intake Quantity Yes Sufficient Number of Voids Toilet 1 1 Urinal 2 tele-NSR Result Diagrams: 03/07/17 04:28 03/08/17 04:23 Cardiac Labs: Cardiac Lab Results (72 Hrs) 03/07/17 04:28 Troponin I < 0.012 - Physical Exam Constitutional: WDWN Cardiovascular: regular rate and rhythm, no murmurs, no rubs, no gallops Peripheral Pulses: 2+: femoral (R), dorsalis-pedis (R), dorsalis-pedis (L) Respiratory: clear to auscultate bilat, no crackles, no wheezes Skin: no edema Neurologic: AAOx3 ICD10 Worksheet Patient Problems: Problems Problem Status Onset Chest pain Acute Alcohol intoxication Acute Chest pain in adult Acute Coronary artery disease Acute History of placement of stent in LAD coronary artery Acute History of right coronary artery stent placement Acute
--- NOTE | 2017-03-08 11:22 | PDDCSUM ---
Discharge Summary Discharge Summary: Juliano is a 61 y/o M with a history of CAD s/p stenting to the LAD and RCA in 2014. His most recent angiogram was in 02/2015 which showed patent coronaries. He presented to the hospital complaining of exertional chest tightness which radiated into this neck and arm and relieved with rest and Nitro. A angiogram yesterday showed CAD without obstruction. He will be treated medically. Atenolol was d/c and he was started on Metoprolol 50mg BID. He will continue Imdur and get a new prescription for SL Nitro PRN prior to d/c. If he continues to have angina consider adding Ranexa. He will hold Metformin for 48 hour post cath. His hypertension is borderline but better with increased dose of BB. Follow up on 03/23 at 10:[address] Parr. DDx: 1. Chest pain - 2. Hx CAD - s/p ATA to LAD and RCA in early 2014. 3. IDDM 4. GERD Exam: NAD, AAOX3 RRR CTA B S/NT/ND NO LE EDEMA F/U: PER ABOVE TOTAL TIME SPENT ON D/C IS 35 MINS. D/W CARDS.
--- NOTE | 2017-03-08 15:08 | ASDISCHSUM ---
Discharge Information Plan Status:Home with No Needs Medically Cleared to Leave:03/07/2017 Discharge Date:03/08/2017 12:44 PM D/C Disposition: ADT D/C Disposition:Home, Routine, Self-Care Projected Discharge Date:03/08/2017 12:00 AM Transportation at D/C: Discharge Delay Reason: Follow-Up Date:03/08/2017 12:00 AM Discharge Slot: Final Diagnosis: Placement Information Patient Contact Information Contact Name:ADELAIDA Relationship:Mother Address:[address] Work Phone: City:[place] Alternate Phone: [facility]/Zip Code:[place] [phone] Email: Financial Information Financial Class:HMO and PPO Plans Primary Plan Desc:[facility] PLAN Primary Plan Number:[id number] Secondary Plan Desc: Secondary Plan Number: Assessment Information [facility] CM Progress Note CM Note CM Note Notes: 03/07/2017 Case Management Note Reviewed chart. There are no case management d/c needs identified d/t pt age, family support and activity levels prior to admission. There are no PT or OT evals ordered at this time. Case Management d/c poc: Home independent with follow up as directed. Case Management available if needs change. Date Signed: 03/07/2017 09:40 AM Electronically Signed By:Katelynn Sheldon RN Intervention Information
== END 2017-03-08 12:44 | disposition home or self-care (01) ==
LOC: INTOOBSV 23:44 → F2W 03-07 00:32
PROVIDERS: ADMIT Student in an Organized Health Care Education/Training Program; ATTEND Family Medicine
DX: I25.119 Atherosclerotic heart disease of native coronary artery with unspecified angina pectoris (principal); Z95.5 Presence of coronary angioplasty implant and graft; I10 Essential (primary) hypertension; E11.9 Type 2 diabetes mellitus without complications; K21.9 Gastro-esophageal reflux disease without esophagitis; E78.5 Hyperlipidemia, unspecified; Z79.84 Long term (current) use of oral hypoglycemic drugs
CPT/HCPCS: 71010; 93005; 93458; 96360; 99285; G0378; J0461; J1644; J1650; J1815; J2250; J3010; Q9967

== ENCOUNTER 2017-04-06 05:15 | Emergency (ER) | payer OTHER ==
[2017-04-06] MEDS ORDERED: SILVER NITRATE APPLICATOR 1 APPL TP ONE ×2 (05:30→05:35)
[2017-04-06] MEDS ORDERED: OXYMETAZOLINE 30 ML NASAL SPRAY ONE (05:30)
--- NOTE | 2017-04-06 05:32 | EDPHY ---
H & P Stated Complaint: nosebleed x1 day Time Seen by Provider: 04/06/17 05:29 HPI/ROS: Chief Complaint: Nosebleed HPI: 61-year-old male with a history of coronary artery disease and diabetes he woke yesterday morning with a nosebleed. He states that these bleeding from about 2-4 yesterday morning. Then stopped. Patient states that he did blow his nose again last night. This morning woke up at about 4 again and can it has been having bleeding. He is primarily from the right-hand side but he does have a history of a septal defect from a prior injury. He is on anti-platelet agents but is not on any blood thinners. No recent trauma or injuries. No lightheadedness. No fainting. No chest pain or shortness of breath. ROS: 10 point Review of Systems is negative except as noted in the HPI. PMH: Coronary artery disease, hypertension, diabetes Social History: No smoking, no alcohol, no recreational drug use Family History: non-contributory Physical Exam: Gen: Awake, Alert, No Distress HEENT: Nose: Strike blood from the nares, he does have a noted septal defect. There is a portion of the intact septum near Kiesselbach's plexus which she is oozing. Ext: no edema, non-tender Skin: no rash Neuro: CN II-XII intact, Sensation grossly intact, Strength 5/5 in bilateral upper and lower extremities - Personal History Current Tetanus/Diphtheria Vaccine: Yes Tetanus Vaccine Date: 2012 - Medical/Surgical History Hx Asthma: No Hx Chronic Respiratory Disease: No Hx Diabetes: Yes Hx Cardiac Disease: Yes Hx Renal Disease: No Hx Cirrhosis: No Hx Alcoholism: No Hx HIV/AIDS: No Hx Splenectomy or Spleen Trauma: No Other PMH: HTN,STENTS IN ,1999 and 2014 , BACK INJIURY 1975,. KNEE SURGERY 1994, IDDM, SHOULER INJURY, ARTHRITIS - Social History Smoking Status: Never smoked Constitutional: Initial Vital Signs Temperature (C) 36.5 C 04/06/17 05:16 Heart Rate 96 04/06/17 05:16 Respiratory Rate 20 04/06/17 05:16 Blood Pressure 147/80 H 04/06/17 05:16 O2 Sat (%) 95 04/06/17 05:16 O2 Delivery Mode Room Air Allergies/Adverse Reactions: No Known Allergies Allergy (Unverified 04/06/17 05:23) Home Medications: Medication Instructions Recorded Aspirin EC [Aspirin EC 325 mg (*)] 325 mg PO DAILY 03/22/14 Herbals/Supplements -Info Only 1 ea PO DAILY 03/22/14 Insulin Glargine,Hum.rec.anlog 45 unit SQ DAILY 03/22/14 [Lantus Solostar] Pantoprazole Sodium [Protonix 40mg 40 mg PO DAILY 03/22/14 (*)] Prasugrel HCl [Effient 10mg (*)] 10 mg PO DAILY #0 tab 03/24/14 Lisinopril [Zestril 2.5 mg (*)] 2.5 mg PO DAILY 04/01/14 Atorvastatin Calcium [Lipitor 40 40 mg PO HS 11/20/14 mg (*)] Nitroglycerin [Nitrostat 0.4 mg 0.4 mg SL PRN PRN #1 bottle 03/02/15 (*)] Benzonatate [Tessalon Pearles] 200 mg PO TID PRN 03/07/17 Diazepam [Valium 10 MG (*)] 10 mg PO BID PRN 03/07/17 Empagliflozin [Jardiance] 25 mg PO DAILY 03/07/17 Exenatide Microspheres [Bydureon] 2 mg SQ DOWNEY 03/07/17 metFORMIN HCL [Glucophage 1000 mg] 1,000 mg PO BIDMEAL 03/07/17 oxyCODONE/APAP 5/325 [Percocet 1 tab PO DAILY PRN 03/07/17 5/325 (*)] Isosorbide Mononitrate [Imdur 30 30 mg PO DAILY #30 tab.sr 03/08/17 mg (*)] Metoprolol Tartrate [Lopressor 50 50 mg PO BID #60 tab 03/08/17 mg (*)] Medical Decision Making - Diagnostics EKG Interpretation: Procedure: Epistaxis control. After verbal consent was obtained, the patient was anesthetized with Aly- Synephrine. The anterior epistaxis was identified. The patient was treated with silver nitrate cautery. Following the procedure the patient was re- examined and the bleeding was well controlled. The patient tolerated the procedure well. The procedure was performed by myself. - Data Points Medications Given: Discontinued Medications Oxymetazoline HCl (Afrin Nasal Cactus) 2 sprays EACHNARE EDNOW ONE Stop: 04/06/17 05:36 Last Admin: 04/06/17 05:37 Dose: Not Given Silver Nitrate/Potassium Nitrate (Silver Nitrate Applicator) 3 each TP EDNOW ONE Stop: 04/06/17 05:36 Last Admin: 04/06/17 05:37 Dose: Not Given Departure - Departure Disposition: Home, Routine, Self-Care Clinical Impression: Acute anterior epistaxis Condition: Good Instructions: Nosebleed (ED) Additional Instructions: Follow up with Ear Nose and Throat physician in 2-3 days for any further nose bleeds. Return to the emergency department for return of bleeding that this not stop after 30 min of pinch in your nose, headache, nausea, vomiting, or any other concerns. Referrals: PRAMOD MARSH [Primary Care Provider] - As per Instructions
[2017-04-06] MEDS ORDERED: OXYMETAZOLINE 30 ML NASAL SPRAY EACHNARE ONE (05:35)
[2017-04-06 06:54] VITALS: BP 143/83; PULSE 80; RESP 16; TEMP 97.9; O2SAT 94
== END 2017-04-06 06:53 | disposition home or self-care (01) ==
PROC: 3E09XTZ Introduction of Destructive Agent into Nose, External Approach (ICD-10-PCS; principal; 2017-04-06)
DX: R04.0 Epistaxis (principal); I25.10 Atherosclerotic heart disease of native coronary artery without angina pectoris; I10 Essential (primary) hypertension; E11.9 Type 2 diabetes mellitus without complications; Z79.4 Long term (current) use of insulin; Z79.82 Long term (current) use of aspirin; Z79.84 Long term (current) use of oral hypoglycemic drugs